=== PATIENT | female | born 1955 | race Caucasian/White ===

== ENCOUNTER 2016-03-28 17:11 | Emergency (ER) | payer SELFPAY ==
[2016-03-28] MEDS ORDERED: PREDNISONE 20 MG TABLET PO ONE (18:39)
[2016-03-28] MEDS ORDERED: IPRATROPIUM/ALBUTEROL 0.5-2.5 MG/3 ML AMPUL NEB ONE (18:39)
--- NOTE | 2016-03-28 18:40 | ER Document Report ---
ED Medical Screen (RME) - General Chief Complaint: Chest Congestion Stated Complaint: COUGH/SINUS PRESSURE Mode of Arrival: Ambulatory Information source: Patient Notes: Patient presents complaining of cough for the past 1.5 weeks. Patient denies any fever, chest pain, or back pain. Patient does state she has had some wheezing. Patient denies any history of COPD. hx: Fibromyalgia TRAVEL OUTSIDE OF THE [place] IN LAST 30 DAYS: No - Related Data Allergies/Adverse Reactions: No Known Allergies Allergy (Unverified 03/28/16 18:38) Physical Exam - Vital signs Vitals: Temp Pulse Resp BP Pulse Ox 98.5 F 87 16 128/78 H 94 03/28/16 17:20 03/28/16 17:20 03/28/16 17:20 03/28/16 17:20 03/28/16 17:20 - Respiratory Respiratory status: No respiratory distress Breath sounds: Nonproductive cough, Wheezing - Right upper and lower lobe wheezing Course - Vital Signs Vital signs: Temp Pulse Resp BP Pulse Ox 98.5 F 87 16 128/78 H 94 03/28/16 17:20 03/28/16 17:20 03/28/16 17:20 03/28/16 17:20 03/28/16 17:20
[2016-03-28] MEDS ORDERED: ALBUTEROL SULFATE 0.083% NEB 2.5 MG/3 ML AMPUL NEB SCH (18:54)
--- NOTE | 2016-03-28 23:01 | ER Document Report ---
ED General - General Chief Complaint: Chest Congestion Stated Complaint: COUGH/SINUS PRESSURE Time seen by provider: 22:45 Mode of Arrival: Ambulatory Notes: Patient is a 60-year-old female that comes emergency department with chief complaint of cough, shortness of breath, yellow sputum production, pain and pressure in her sinuses underneath her eyes, and some wheezing with weakness at home. Patient states symptoms started as a simple running nose 1.5 weeks ago. Patient smokes daily, takes no daily medications, only reported past medical history is fibromyalgia, patient does not have a primary care. TRAVEL OUTSIDE OF THE [place] IN LAST 30 DAYS: No - Related Data Allergies/Adverse Reactions: No Known Allergies Allergy (Unverified 03/28/16 18:38) Past Medical History - General Information source: Patient - Social History Smoking Status: Current Every Day Smoker Smoking Education Provided: Yes - <3 min Frequency of alcohol use: None Drug Abuse: None Lives with: Family Family History: Reviewed & Not Pertinent - Medical History Medical History: Negative Surgical Hx: Negative Review of Systems - Review of Systems Constitutional: No symptoms reported EENT: See HPI Cardiovascular: No symptoms reported Respiratory: See HPI Gastrointestinal: No symptoms reported Genitourinary: No symptoms reported Female Genitourinary: No symptoms reported Musculoskeletal: No symptoms reported Skin: No symptoms reported Hematologic/Lymphatic: No symptoms reported Neurological/Psychological: No symptoms reported Physical Exam - Vital signs Vitals: Temp Pulse Resp BP Pulse Ox 98.5 F 87 16 128/78 H 94 03/28/16 17:20 03/28/16 17:20 03/28/16 17:20 03/28/16 17:20 03/28/16 17:20 Interpretation: Normal - General General appearance: Alert, Other - Patient is thin, has an appearance suggestive of a "pink puffer" - HEENT Head: Normocephalic, Atraumatic Eyes: Normal Conjunctiva: Normal Extraocular movements intact: Yes Eyelashes: Normal Pupils: PERRL Ears: Normal External canal: Normal Tympanic membrane: Normal Sinus: Maxillary - Definite tenderness with wincing with palpation over the maxillary sinuses, slightly worse on the left side Nasal: Other - Patient sounds congested, no overt abnormality noted Mouth/Lips: Normal Mucous membranes: Normal Pharynx: Normal Neck: Normal. No: Anterior cervical chain - Respiratory Respiratory status: No respiratory distress. No: Respiratory distress, Tachypnea Chest status: Nontender Breath sounds: Decreased air movement. No: Nonproductive cough, Wheezing Chest palpation: Normal - Cardiovascular Rhythm: Regular. No: Tachycardia Heart sounds: Normal auscultation, S1 appreciated, S2 appreciated Murmur: No - Abdominal Inspection: Normal Distension: No distension Bowel sounds: Normal Tenderness: Nontender Organomegaly: No organomegaly - Back Back: Normal, Nontender - Extremities General upper extremity: Normal inspection, Nontender, Normal color, Normal ROM , Normal temperature General lower extremity: Normal inspection, Nontender, Normal color, Normal ROM , Normal temperature, Normal weight bearing. No: Eugenia's sign - Neurological Neuro grossly intact: Yes Cognition: Normal Orientation: AAOx4 Ramona Coma Scale Eye Opening: Spontaneous Nicole Coma Scale Verbal: Oriented Ramona Coma Scale Motor: Obeys Commands Nicole Coma Scale Total: 15 Speech: Normal Motor strength normal: LUE, RUE, LLE, RLE Sensory: Normal - Psychological Associated symptoms: Normal affect, Normal mood - Skin Skin Temperature: Warm Skin Moisture: Dry Skin Color: Normal Course - Re-evaluation Re-evalutation: The patient's appearance and chest x-ray consistent with COPD, however on examination patient has full lung sounds, no hypoxia, no labored breathing or respiratory distress, no pneumonia is seen on chest x-ray. Patient is very tender maxillary sinuses on examination with wincing on palpation, patient with progressive symptoms, postnasal drainage on examination, clinical picture is most consistent with sinusitis and secondary cough and a chronic smoker. Patient be treated with Augmentin, prednisone, discussed smoking cessation which patient states understanding of the need for her, distressed primary care follow-up, patient provided with referral for this, discussed return precautions. Patient states understanding and agreement. - Vital Signs Vital signs: Temp Pulse Resp BP Pulse Ox 99 F 82 16 122/68 97 03/28/16 23:50 03/28/16 23:50 03/28/16 23:50 03/28/16 23:50 03/28/16 23:50 Discharge - Discharge Clinical Impression: Cough, Wheezing, Tobacco abuse Upper respiratory infection Qualifiers: URI type: unspecified URI Qualified Code(s): J06.9 - Acute upper respiratory infection, unspecified Sinusitis Qualifiers: Sinusitis location: maxillary Chronicity: acute Recurrence: non-recurrent Qualified Code(s): J01.00 - Acute maxillary sinusitis, unspecified Condition: Stable Disposition: HOME, SELF-CARE Additional Instructions: Your chest x-ray does not show pneumonia. Your examination is consistent with most likely a viral upper respiratory infection and also a sinus infection. Take prednisone as directed, take the Augmentin antibiotic as directed, stop smoking, rest. Follow-up with primary care. Return to the emergency department for any concerning or worsening symptoms. Prescriptions: Amox Tr/Potassium Clavulanate [Augmentin 875-125 Tablet] 1 tab PO BID 7 Days Prednisone [Deltasone 10 mg Tablet] 10 mg PO ASDIR PRN #21 tablet PRN Reason: Forms: Return to Work Referrals: [facility] [Provider Group] - Follow up as needed [facility] [Provider Group] - Follow up as needed
[2016-03-28 23:52] VITALS: BP 122/68
== END 2016-03-28 23:25 | disposition home or self-care (01) ==
LOC: ER 17:11
DX: J06.9 Acute upper respiratory infection, unspecified (principal); J01.00 Acute maxillary sinusitis, unspecified; R05 Cough; R06.02 Shortness of breath; R53.1 Weakness; J34.89 Other specified disorders of nose and nasal sinuses; F17.200 Nicotine dependence, unspecified, uncomplicated; Z71.6 Tobacco abuse counseling
CPT/HCPCS: 94640; 99283; 71020; J7512; J7620

== ENCOUNTER 2018-07-01 00:12 | Emergency (ER) | payer SELFPAY ==
[2018-07-01] MEDS ORDERED: PENICILLIN V POTASSIUM 500 MG TABLET PO ONE (02:07)
--- NOTE | 2018-07-01 02:12 | ER Document Report ---
ED General - General Chief Complaint: Toothache Stated Complaint: TOOTH PAIN Time Seen by Provider: 07/01/18 01:52 TRAVEL OUTSIDE OF THE [place] IN LAST 30 DAYS: No - HPI Notes: Patient is a 62-year-old female that presents to the emergency department for chief complaint of dental infection and left shoulder pain. Patient reports left shoulder pain for the last 2 weeks. She describes it as achy and worse with movement. She denies any relieving factors. She has not taken any [id number] medicine for her pain. She denies injury or trauma as well as numbness or weakness in the left upper extremity. Patient states that she has had dental infections before that have caused some pain in her shoulder. She has pain in her lower front 4 teeth. She denies any associated fevers or facial swelling. She has been trying to get into a dentist but has not established a follow-up appointment yet. Past Medical History: Negative Past Surgical History: Left elbow surgery Social History: Daily tobacco. Denies drugs and alcohol Family History: Reviewed and noncontributory for presenting illness Allergies: Reviewed, see documented allergy list. REVIEW OF SYSTEMS: CONSTITUTIONAL : No fever No chills No diaphoresis No recent illness EENT: Dental pain No vision changes No congestion No sore throat CARDIOVASCULAR: No chest pain No palpitations RESPIRATORY: No shortness of breath No cough No difficulty breathing GASTROINTESTINAL: No abdominal pain No nausea No vomiting No diarrhea GENITOURINARY: No dysuria No hematuria No difficulty urinating MUSCULOSKELETAL: No back pain No leg pain Left shoulder pain SKIN: No rashes No lesions LYMPHATIC: No swollen, enlarged glands. NEUROLOGICAL: No lightheadedness No headache No weakness No paresthesias PSYCHIATRIC: No anxiety No depression PHYSICAL EXAMINATION: Vital signs reviewed, nursing noted reviewed. GENERAL: Well-appearing, well-nourished and in no acute distress. HEAD: Atraumatic, normocephalic. EYES: Eyes appear normal, extraocular movements intact, sclera anicteric, conjunctiva are normal. ENT: Diffuse dental decay with gingival erythema on anterior mandibular region, dental laxity to anterior mandibular teeth, no acute dental fracture, no facial swelling, nares patent, oropharynx clear without exudates. Moist mucous membranes. NECK: Normal range of motion, supple without lymphadenopathy LUNGS: Breath sounds clear to auscultation bilaterally and equal. No wheezes rales or rhonchi. HEART: Regular rate and rhythm without murmurs ABDOMEN: Soft, nontender, normoactive bowel sounds. No rebound, guarding, or rigidity. No masses appreciated. EXTREMITIES: Normal range of motion to left shoulder with no joint effusion, erythema or focal tenderness. no pitting or edema. NEUROLOGICAL: No focal neurological deficits. Moves all extremities spontaneously Motor and sensory grossly intact on exam. PSYCH: Normal mood, normal affect. SKIN: Warm, Dry, normal turgor, no rashes or lesions noted on exposed skin - Related Data Allergies/Adverse Reactions: No Known Allergies Allergy (Unverified 03/28/16 18:38) Past Medical History - Social History Smoking Status: Current Every Day Smoker Chew tobacco use (# tins/day): No Frequency of alcohol use: None Drug Abuse: None Family History: Reviewed & Not Pertinent Patient has suicidal ideation: No Patient has homicidal ideation: No Renal/ Medical History: Denies: Hx Peritoneal Dialysis Past Surgical History: Reports: Hx Cholecystectomy, Hx Orthopedic Surgery - left elbow Physical Exam - Vital signs Vitals: Temp Pulse Resp BP Pulse Ox 97 F L 73 16 133/83 H 96 07/01/18 00:19 07/01/18 00:19 07/01/18 00:19 07/01/18 00:19 07/01/18 00:19 Course - Re-evaluation Re-evalutation: 07/01/18 02:11 Vitals reviewed. Nursing notes reviewed. Patient is afebrile and nontoxic in appearance. She does have some erythema to her gingiva and severe dental decay. Patient will be started on penicillin VK for her dental infection and was encouraged to follow with a dentist as soon as possible for dental extraction. Her left shoulder exam is normal with no tenderness to palpation. She has no history of trauma requiring imaging. There is no erythema or fever to suggest infection. Patient counseled on RICE therapy and will take Tylenol and Motrin as needed for pain. - Vital Signs Vital signs: Temp Pulse Resp BP Pulse Ox 97 F L 73 16 133/83 H 96 07/01/18 00:19 07/01/18 00:19 07/01/18 00:19 07/01/18 00:19 07/01/18 00:19 Discharge - Discharge Clinical Impression: Pain, dental, Dental infection Left shoulder pain Qualifiers: Chronicity: acute Qualified Code(s): M25.512 - Pain in left shoulder Condition: Stable Disposition: HOME, SELF-CARE Instructions: Toothache ([facility]), Penicillin V K ([facility] / [facility]) Additional Instructions: Please return to the emergency department if you have any worsening, or concern of your symptoms. Please return to the emergency department if you develop chest pain, difficulty breathing, severe abdominal pain, or ongoing vomiting. Please follow-up with your primary care physician in 2-3 days and any other recommended physicians. If prescribed, take all medications as directed. If you have any questions or concerns do not hesitate to return the emergency department for evaluation. Take Tylenol or ibuprofen as needed for pain Follow-up with a dentist for your dental decay and infection as soon as possible Prescriptions: Penicillin V Potassium [Penicillin Vk 500 mg Tablet] 500 mg PO BID #20 tablet
[2018-07-01 02:15] VITALS: BP 122/76
== END 2018-07-01 02:30 | disposition home or self-care (01) ==
LOC: ER 00:12
DX: K04.7 Periapical abscess without sinus (principal); M25.512 Pain in left shoulder; F17.210 Nicotine dependence, cigarettes, uncomplicated; Z90.49 Acquired absence of other specified parts of digestive tract
CPT/HCPCS: 99282